=== PATIENT | female | born 1980 | race Caucasian/White ===

== ENCOUNTER 2022-03-23 16:55 | Emergency (ER) | payer SELFPAY ==
[~2022-03-23] VITALS: Ht 172.7 cm; Wt 66.0 kg
[2022-03-23 17:09] VITALS: BP 132/47
[2022-03-24] MEDS ORDERED: IBUP-2028 MT (02:15)
== END 2022-03-24 02:40 | disposition home or self-care (01) ==
LOC: ER 16:55
DX: S09.8XXA Other specified injuries of head, initial encounter (principal); Y04.2XXA Assault by strike against or bumped into by another person, initial encounter; Y93.89 Activity, other specified; Y92.89 Other specified places as the place of occurrence of the external cause
CPT/HCPCS: 81025; 93005; 99284